=== PATIENT | male | born 1945 | race African-American/Black ===

== ENCOUNTER 2017-09-19 18:24 | Inpatient (IN) | payer OTHER ==
[~2017-09-19] VITALS: Ht 182.9 cm; Wt 100.7 kg
[2017-09-19] MEDS ORDERED: SODIUM CHLORIDE 0.9% 1,000 ML IV ONE (18:42)
[2017-09-19 19:16] LABS: BASOPHILS % 0.3 % (0.0-2.0); EOSINOPHILS % 0.3 % (0.0-5.0); HEMOGLOBIN. 13.8 g/dL (14.0-18.0); LYMPHOCYTES % 15.7 % (20.0-50.0); MEAN CORPUSCULAR HEMOGLOBIN 30.1 pg (28.0-32.0); MEAN CORPUSCULAR VOLUME 91.3 fL (80.0-94.0); MEAN PLATELET VOLUME 8.4 fl (7.4-10.4); MONOCYTES % 11.5 % (2.0-8.0); NEUTROPHILS % 72.2 % (40.0-76.0); PLATELET 170 x1000/uL (130-400); RED BLOOD CELL COUNT 4.59 mill/uL (4.7-6.1); RED CELL DISTRIBUTION WIDTH 13.1 % (11.6-14.6)
[2017-09-19 19:21] LABS: INR 1.1; PROTHROMBIN TIME 11.9 sec (9.4-11.6)
[2017-09-19 19:24] LABS: CHLORIDE 107 mEq/L (98-107)
[2017-09-19 19:32] LABS: CREATINE KINASE MB FRACTION 4.2 ng/mL (0.5-3.6)
[2017-09-19 19:35] LABS: TROPONIN I 0.58 ng/mL (0.00-0.04)
[2017-09-19] MEDS ORDERED: ASPIRIN 325MG EC TABLET PO ONE (19:45)
[2017-09-19] MEDS ORDERED: DEXTROSE 50% WATER 50ML SYRINGE IV PRN (20:45)
[2017-09-19] MEDS ORDERED: GUAIFENESIN 200MG/10ML SUGAR FREE UDC PO PRN (20:45)
[2017-09-19] MEDS ORDERED: CLONIDINE 0.1MG TABLET PO PRN (20:45)
[2017-09-19] MEDS ORDERED: NA PHOS,M-B/NA PHOS,DI-BA ENEMA 118ML PR PRN (20:45)
[2017-09-19] MEDS ORDERED: IPRATROPIUM/ALBUTEROL 0.5-3(2.5)MG/3ML NEB INH PRN (20:45)
[2017-09-19] MEDS ORDERED: MORPHINE SULFATE 4 MG/ML CPJ (NOT FOR IM USE) IV PRN (20:45)
[2017-09-19] MEDS ORDERED: ACETAMINOPHEN 325MG TABLET PO PRN (20:45)
[2017-09-19] MEDS ORDERED: ONDANSETRON HCL 4MG/2ML VIAL IV PRN (20:45)
[2017-09-19] MEDS ORDERED: DIPHENHYDRAMINE 50MG/ML VIAL IV PRN (20:45)
[2017-09-19] MEDS ORDERED: DOCUSATE SODIUM 100MG CAPSULE PO PRN (20:45)
[2017-09-19] MEDS ORDERED: MAGNESIUM/ALUMINUM HYDROXIDE/SIMETHICONE 30ML UDC PO PRN (20:45)
[2017-09-19] MEDS ORDERED: ZOLPIDEM TARTRATE 5MG TABLET PO PRN (20:45)
[2017-09-19] MEDS ORDERED: TRAMADOL 50MG TABLET PO PRN (20:45)
[2017-09-19 21:54] LABS: CREATINE KINASE MB FRACTION 4.5 ng/mL (0.5-3.6)
[2017-09-19 21:57] LABS: TROPONIN I 0.54 ng/mL (0.00-0.04)
[2017-09-19 22:00] VITALS: BP 95/47
[2017-09-19] MEDS ORDERED: SODIUM CHLORIDE 0.9% 1000ML BAG (SEPSIS BOLUS) IV ONE (22:15)
[2017-09-19] MEDS: BLOOD SUGAR DIAGNOSTIC STRIP TEST SCH (22:36)
[2017-09-19] MEDS: FAMOTIDINE 20MG/2ML VIAL IV SCH (23:33)
[2017-09-19] MEDS: ENOXAPARIN 100MG/ML SYR SUBCUT SCH (23:34)
[2017-09-19] MEDS: SODIUM CHLORIDE 0.9% 3,000 ML IV SCH (23:43)
[2017-09-19] MEDS: INSULIN LISPRO 100 UNITS/ML SUBCUT SCH (23:49)
[2017-09-20] VITALS: BP 99/50
[2017-09-20] MEDS ORDERED: CEFTRIAXONE 1 G PREMIX 50 ML IV SCH
[2017-09-20] MEDS ORDERED: LEVOFLOXACIN 500MG PREMIX 100 ML IV SCH (00:30)
[2017-09-20] MEDS ORDERED: [UNRECOGNIZED DRUG - CODE] LEFTEYE (00:39)
[2017-09-20] MEDS ORDERED: AMLO5TAB88 PO (00:39)
[2017-09-20] MEDS ORDERED: METF500T4 PO (00:39)
[2017-09-20] MEDS ORDERED: TERA5CAP4 PO (00:39)
[2017-09-20] MEDS ORDERED: LISI10TA5 PO (00:39)
[2017-09-20] MEDS ORDERED: GARLIC PO (00:40)
[2017-09-20] MEDS ORDERED: FISH OIL PO (00:40)
[2017-09-20] MEDS ORDERED: COLC0.6T66 PO (00:40)
[2017-09-20] MEDS ORDERED: SIMV80TA70 PO (00:40)
[2017-09-20] MEDS ORDERED: MULT-34 PO (00:40)
[2017-09-20] MEDS ORDERED: FISH GT (00:40)
[2017-09-20] MEDS ORDERED: GLIP5TAB12 PO (00:40)
[2017-09-20] MEDS ORDERED: GLUC15006 PO (00:40)
[2017-09-20] MEDS ORDERED: ASPI-1159 PO (00:40)
[2017-09-20] MEDS ORDERED: XALAO EACHEYE (00:40)
[2017-09-20 04:00] VITALS: BP 96/60
[2017-09-20] MEDS: SODIUM CHLORIDE 0.9% 3,000 ML IV SCH ×2 (05:00→10:35)
[2017-09-20] MEDS: SODIUM CHLORIDE 0.9% INJ 3ML FLUSH IVF SCH ×3 (05:01→21:06)
[2017-09-20] MEDS: CEFTRIAXONE 1 G PREMIX 50 ML IV SCH (05:02)
[2017-09-20] MEDS: BLOOD SUGAR DIAGNOSTIC STRIP TEST SCH ×4 (06:22→21:06)
[2017-09-20] MEDS: INSULIN LISPRO 100 UNITS/ML SUBCUT SCH ×4 (06:22→21:04)
[2017-09-20 06:51] LABS: BASOPHILS % 0.4 % (0.0-2.0); EOSINOPHILS % 0.4 % (0.0-5.0); HEMATOCRIT. 37.5 % (42.0-52.0); HEMOGLOBIN. 12.4 g/dL (14.0-18.0); LYMPHOCYTES % 20.8 % (20.0-50.0); MEAN CORPUSCULAR HEMOGLOBIN 30.3 pg (28.0-32.0); MEAN CORPUSCULAR VOLUME 91.6 fL (80.0-94.0); MEAN PLATELET VOLUME 8.3 fl (7.4-10.4); MONOCYTES % 14.2 % (2.0-8.0); NEUTROPHILS % 64.2 % (40.0-76.0); PLATELET 136 x1000/uL (130-400); RED BLOOD CELL COUNT 4.09 mill/uL (4.7-6.1); RED CELL DISTRIBUTION WIDTH 13.2 % (11.6-14.6)
[2017-09-20 07:00] LABS: CHLORIDE 108 mEq/L (98-107)
[2017-09-20 07:20] LABS: CREATINE KINASE 85 IU/L (39-308); CREATINE KINASE MB FRACTION 5.2 ng/mL (0.5-3.6)
[2017-09-20 07:46] VITALS: BP 95/59
[2017-09-20 08:14] LABS: CLARITY URINE CLOUDY (CLEAR); COLOR URINE DARK YELLOW (YELLOW); KETONES URINE 1+ (NEGATIVE); LEUKOCYTE ESTERASE URINE NEGATIVE (NEGATIVE); NITRITE URINE NEGATIVE (NEGATIVE); OCCULT BLOOD URINE NEGATIVE (NEGATIVE); PROTEIN URINE 1+ (NEGATIVE); SPECIFIC GRAVITY URINE 1.029 (1.005-1.030)
[2017-09-20 09:13] LABS: *AMPHETAMINES SCREEN URINE NEGATIVE (NEGATIVE); *BARBITURATES SCREEN URINE NEGATIVE (NEGATIVE); *BENZODIAZEPINES SCREEN URINE PRESUMTIVE POSITIVE (NEGATIVE); *COCAINE SCREEN URINE NEGATIVE (NEGATIVE); CANNABINOID URINE SCREEN PRESUMTIVE POSITIVE (NEGATIVE); METHADONE URINE SCREEN NEGATIVE (NEGATIVE); OPIATES URINE SCREEN NEGATIVE (NEGATIVE); PHENCYCLIDINE URINE SCREEN NEGATIVE (NEGATIVE)
[2017-09-20] MEDS: ASPIRIN 325MG EC TABLET PO SCH (09:35)
[2017-09-20] MEDS: FAMOTIDINE 20MG/2ML VIAL IV SCH (09:35)
[2017-09-20] MEDS: ENOXAPARIN 100MG/ML SYR SUBCUT SCH ×2 (09:36→21:06)
[2017-09-20 12:30] VITALS: BP 153/76
[2017-09-20 16:02] VITALS: BP 112/79
[2017-09-20 20:00] VITALS: BP 92/53
[2017-09-21] VITALS (7 sets, daily range): BP systolic 94–139; BP diastolic 66–92
[2017-09-21] MEDS ORDERED: LEVOFLOXACIN 500MG PREMIX 100 ML IV SCH (01:15)
[2017-09-21] MEDS: SODIUM CHLORIDE 0.9% INJ 3ML FLUSH IVF SCH ×3 (05:24→21:05)
[2017-09-21] MEDS: CEFTRIAXONE 1 G PREMIX 50 ML IV SCH (05:24)
[2017-09-21] MEDS: BLOOD SUGAR DIAGNOSTIC STRIP TEST SCH ×4 (05:35→21:05)
[2017-09-21] MEDS: INSULIN LISPRO 100 UNITS/ML SUBCUT SCH ×4 (05:36→21:11)
[2017-09-21 08:24] LABS: BASOPHILS % 0.5 % (0.0-2.0); EOSINOPHILS % 1.4 % (0.0-5.0); HEMATOCRIT. 36.8 % (42.0-52.0); HEMOGLOBIN. 12.2 g/dL (14.0-18.0); LYMPHOCYTES % 22.7 % (20.0-50.0); MEAN CORPUSCULAR HEMOGLOBIN 30.7 pg (28.0-32.0); MEAN CORPUSCULAR VOLUME 92.7 fL (80.0-94.0); MEAN PLATELET VOLUME 8.6 fl (7.4-10.4); MONOCYTES % 12.8 % (2.0-8.0); NEUTROPHILS % 62.6 % (40.0-76.0); PLATELET 145 x1000/uL (130-400); RED BLOOD CELL COUNT 3.97 mill/uL (4.7-6.1); RED CELL DISTRIBUTION WIDTH 13.3 % (11.6-14.6)
[2017-09-21] MEDS ORDERED: FAMOTIDINE 20MG/2ML VIAL IV SCH (09:00)
[2017-09-21] MEDS: ASPIRIN 325MG EC TABLET PO SCH (09:14)
[2017-09-21] MEDS: ENOXAPARIN 100MG/ML SYR SUBCUT SCH ×2 (09:14→21:05)
== END 2017-09-22 01:27 | disposition short-term general hospital (02) | DRG 871 ==
LOC: ER 18:24 → 5WST 19:56 → EDBEDREQ 19:58 → EDBEDREQTM 19:58 → ENRESERV 20:01 → CANRESERV 20:01
PROVIDERS: ADMIT Internal Medicine; ATTEND Internal Medicine
DX: A41.9 Sepsis, unspecified organism (principal); I21.4 Non-ST elevation (NSTEMI) myocardial infarction; N17.0 Acute kidney failure with tubular necrosis; I95.9 Hypotension, unspecified; E11.65 Type 2 diabetes mellitus with hyperglycemia; E87.5 Hyperkalemia; D64.9 Anemia, unspecified; E86.0 Dehydration; I11.9 Hypertensive heart disease without heart failure; J44.9 Chronic obstructive pulmonary disease, unspecified; E66.9 Obesity, unspecified; M10.9 Gout, unspecified; F12.10 Cannabis abuse, uncomplicated; F17.210 Nicotine dependence, cigarettes, uncomplicated; Z79.4 Long term (current) use of insulin; Z86.718 Personal history of other venous thrombosis and embolism; Z79.899 Other long term (current) drug therapy; Z68.30 Body mass index [BMI] 30.0-30.9, adult
CPT/HCPCS: 36415; 70450; 71045; 80048; 80053; 80061; 80305; 81003; 82550; 82553; 82962; 83036; 83605; 83880; 84484; 85025; 85610; 85730; 87040; 87086; 93005; 93306; 93970; 96360; 99285; J0696; J1650; J1815; J1956; J3490; J7030; J7050